=== PATIENT | male | born 1990 | race Caucasian/White ===

== ENCOUNTER 2018-10-13 14:11 | Emergency (ER) | payer BC ==
--- NOTE | 2018-10-13 16:29 | RAD REPORT ---
EXAM DESCRIPTION: Rudy Single View10/13/2018 3:28 pm CLINICAL HISTORY: Chest pain COMPARISON: none FINDINGS: The lungs appear clear of acute infiltrate. The heart is normal size IMPRESSION: No acute abnormalities displayed
--- NOTE | 2018-10-13 18:43 | RAD REPORT ---
EXAM DESCRIPTION: CT - Thorax Wo Con - 10/13/2018 5:45 pm CLINICAL HISTORY: Chest pain status post fall COMPARISON: None TECHNIQUE: Computed axial tomography of the chest was obtained. Contrast was not requested. All CT scans are performed using dose optimization technique as appropriate and may include automated exposure control or mA/KV adjustment according to patient size. FINDINGS: The evaluation of mediastinum, bc and vessels is limited secondary to lack of IV contras t administration. A mildly displaced fracture involves the left tenth posterior rib. No pneumothorax A mediastinal hematoma is not seen. A pulmonary contusion is not noted A pleural effusion is not present. A pericardial effusion is not seen IMPRESSION: Mildly displaced fracture left tenth posterior rib
--- NOTE | 2018-10-13 19:24 | ER ---
Nurse's Notes [facility] Name: Matt Suazo Age: 28 yrs Sex: Male : 1990 Arrival Date: 10/13/2018 Time: 14:12 Bed 12 Private MD: Diagnosis: Fracture of one rib, left side Presentation: 10/13 14:22 Presenting complaint: Patient states: I fell two weeks ago and my ribs hurt. Transition la1 of care: patient was not received from another setting of care. Onset of symptoms was October 13, 2018. Risk Assessment: Do you want to hurt yourself or someone else? Patient reports no desire to harm self or others. Initial Sepsis Screen: Does the patient meet any 2 criteria? No. Patient's initial sepsis screen is negative. Does the patient have a suspected source of infection? No. Patient's initial sepsis screen is negative. Care prior to arrival: None. 14:22 Method Of Arrival: Ambulatory la1 14:22 Acuity: ROSA 4 la1 Historical: - Allergies: 14:23 No Known Allergies; la1 - PMHx: 14:23 None; la1 - Immunization history:: Adult Immunizations up to date. - Social history:: Smoking status: Patient/guardian denies using tobacco. - Ebola Screening: : No symptoms or risks identified at this time. Screenin:24 Abuse screen: Denies threats or abuse. Nutritional screening: No deficits noted. la1 Tuberculosis screening: No symptoms or risk factors identified. Fall Risk None identified. Assessment: 14:23 General: Appears in no apparent distress. Behavior is calm, cooperative. Pain: la1 Complains of pain in left subscapular area, right subscapular area and mid back area. Neuro: Level of Consciousness is awake, alert, obeys commands, Oriented to person, place, time, situation. Cardiovascular: Capillary refill < 3 seconds Patient's skin is warm and dry. Respiratory: Airway is patent Respiratory effort is even, unlabored, Respiratory pattern is regular, symmetrical. GI: No signs and/or symptoms were reported involving the gastrointestinal system. : No signs and/or symptoms were reported regarding the genitourinary system. 15:30 Reassessment: Patient appears in no apparent distress at this time. No changes from aj1 previously documented assessment. Patient and/or family updated on plan of care and expected duration. Pain level reassessed. Patient is alert, oriented x 3, equal unlabored respirations, skin warm/dry/pink. 17:30 Reassessment: Patient appears in no apparent distress at this time. No changes from aj1 previously documented assessment. Patient and/or family updated on plan of care and expected duration. Pain level reassessed. Patient is alert, oriented x 3, equal unlabored respirations, skin warm/dry/pink. 19:30 Reassessment: Patient appears in no apparent distress at this time. No changes from aj1 previously documented assessment. Patient and/or family updated on plan of care and expected duration. Pain level reassessed. Patient is alert, oriented x 3, equal unlabored respirations, skin warm/dry/pink. Vital Signs: 14:23 BP 123 / 72; Pulse 85; Resp 16; Temp 97.5; Pulse Ox 98% on R/A; Weight 68.04 kg; Height la1 5 ft. 7 in. (170.18 cm); 19:47 BP 113 / 77; Pulse 72; Resp 16; Pulse Ox 100% on R/A; aj1 14:23 Body Mass Index 23.49 (68.04 kg, 170.18 cm) la1 ED Course: 14:12 Patient arrived in ED. as 14:23 Triage completed. la1 14:23 Arm band placed on left wrist. la1 14:24 Alonzo Zavaleta PA is PHCP. [facility] 14:24 Chavo Benites MD is Attending Physician. [facility] 14:24 Patient has correct armband on for positive identification. la1 14:33 Kendal Dawkins, JEROME is Primary Nurse. aj1 15:29 Chest Single View XRAY In Process Unspecified. EDMS 17:47 CT Chest Wo Con In Process Unspecified. EDMS 19:47 No provider procedures requiring assistance completed. Patient did not have IV access aj1 during this emergency room visit. Administered Medications: No medications were administered Outcome: 19:23 Discharge ordered by . jm 19:47 Discharged to home ambulatory. aj1 19:47 Condition: good 19:47 Discharge instructions given to patient, Instructed on discharge instructions, follow up and referral plans. medication usage, Demonstrated understanding of instructions, follow-up care, medications, Prescriptions given X 1. 19:49 Patient left the ED. aj1 Signatures: Dispatcher [employer] Kendal Mckee RN RN aj1 Alonzo Zavaleta PA PA jmm Martinez, Amelia as Attema, Lee RN RN la1
--- NOTE | 2018-10-13 19:24 | EDPHYS ---
Physician Documentation [facility] Name: Matt Suazo Age: 28 yrs Sex: Male : 1990 Arrival Date: 10/13/2018 Time: 14:12 Bed 12 Private MD: ED Physician Chavo Benites HPI: 10/13 14:45 This 28 yrs old Male presents to ER via Ambulatory with complaints of Rib jmm Injury. 14:45 The patient or guardian reports chest pain that is located primarily in the right jmm lateral posterior chest and left lateral posterior chest. Onset: The symptoms/episode began/occurred acutely, 2 week(s) ago. The pain does not radiate. Associated signs and symptoms: Pertinent negatives: abdominal pain, shortness of breath. This is a 28 year old male with no chronic medical conditions that presents to the ED with complaints of bilateral posterior rib pain. Patient states he injured himself [facility] [place] [facility] [place] Patient states he landing on the floor ontop of another persons arm. Denies fever. Denies shortness of breath. . Historical: - Allergies: 14:23 No Known Allergies; la1 - PMHx: 14:23 None; la1 - Immunization history:: Adult Immunizations up to date. - Social history:: Smoking status: Patient/guardian denies using tobacco. - Ebola Screening: : No symptoms or risks identified at this time. ROS: 14:45 Constitutional: Negative for fever, chills, and weight loss, Cardiovascular: Negative jmm for chest pain, palpitations, and edema. 14:45 Respiratory: Negative for shortness of breath, cough, wheezing, and pleuritic chest pain. 14:45 Back: Positive for rib pain. 14:45 All other systems are negative. Exam: 14:45 Constitutional: This is a well developed, well nourished patient who is awake, alert, jmm and in no acute distress. Head/Face: atraumatic. Eyes: EOMI, no conjunctival erythema appreciated ENT: Moist Mucus Membranes Neck: Trachea midline, Supple Chest/axilla: Normal chest wall appearance and motion. Cardiovascular: Regular rate and rhythm. No edema appreciated Respiratory: Normal respirations, no respiratory distress appreciated Abdomen/GI: Non distended, soft 14:45 Respiratory: the patient does not display signs of respiratory distress, Respirations: normal, Breath sounds: are clear throughout. 14:45 Back: posterior rib step off noted. Vital Signs: 14:23 BP 123 / 72; Pulse 85; Resp 16; Temp 97.5; Pulse Ox 98% on R/A; Weight 68.04 kg; Height la1 5 ft. 7 in. (170.18 cm); 19:47 BP 113 / 77; Pulse 72; Resp 16; Pulse Ox 100% on R/A; aj1 14:23 Body Mass Index 23.49 (68.04 kg, 170.18 cm) la1 MDM: 14:45 Patient medically screened. [facility] 19:22 Data reviewed: vital signs, nurses notes. Counseling: I had a detailed discussion with [facility] the patient and/or guardian regarding: the historical points, exam findings, and any diagnostic results supporting the discharge/admit diagnosis, radiology results, the need for outpatient follow up, to return to the emergency department if symptoms worsen or persist or if there are any questions or concerns that arise at home. 19:22 ED course: Patient is alert and non toxic in appearance in the ED. I discussed with the [facility] patient the need to follow up with pcp and given return precautions. Patient understood and agrees with the plan of care. . 10/13 14:54 Order name: Chest Single View XRAY; Complete Time: 16:30 [facility] 10/13 16:19 Order name: INCENTIVE SPIROMETRY [facility] 10/13 17:21 Order name: CT Chest Wo Con; Complete Time: 19:06 [facility] Administered Medications: No medications were administered Disposition: 10/14 11:16 Co-signature as Attending Physician, Chavo Benites MD I agree with the assessment and ramon plan of care. Disposition: 10/13/18 19:23 Discharged to Home. Impression: Fracture of one rib, left side. - Condition is Stable. - Discharge Instructions: Rib Fracture, Incentive Spirometer. - Prescriptions for Ultracet 37.5- 325 mg Oral Tablet - take 1 tablet by ORAL route every 6 hours - for up to 5 days; do not exceed 8 tablets per day.; 12 tablet. - Medication Reconciliation Form, Thank You Letter, Antibiotic Education, Prescription Opioid Use form. - Follow up: Private Physician; When: 2 - 3 days; Reason: Recheck today's complaints, Continuance of care, Re-evaluation by your physician. Signatures: Dispatcher [employer] Kendal Mckee, JEROME RN aj1 Chavo Benites MD MD cha Mickail, Joel, PA PA jmm Attema, Lee RN RN la1 Corrections: (The following items were deleted from the chart) 10/13 19:49 19:23 10/13/2018 19:23 Discharged to Home. Impression: Fracture of one rib, left side. aj1 Condition is Stable. Forms are Medication Reconciliation Form, Thank You Letter, Antibiotic Education, Prescription Opioid Use. Follow up: Private Physician; When: 2 - 3 days; Reason: Recheck today's complaints, Continuance of care, Re-evaluation by your physician. adriana
== END 2018-10-13 19:49 | disposition home or self-care (01) ==
LOC: ER 14:11
DX: S22.32XA Fracture of one rib, left side, initial encounter for closed fracture (principal); W19.XXXA Unspecified fall, initial encounter; Y93.75 Activity, martial arts; Y92.89 Other specified places as the place of occurrence of the external cause
CPT/HCPCS: 71045; 71250; 99283

== ENCOUNTER 2022-05-02 03:02 | Inpatient (IN) | payer BC ==
[2022-05-02 03:55] LABS: Absolute Lymphocytes (CBC) 0.7 K/uL (0.7-4.9); Hematocrit 39.2 % (39.6-49.0); MCV 85.7 fL (80-100); MPV 8.5 fL (7.6-11.3); RBC Red Blood Cell Count 4.58 M/uL (4.33-5.43)
[2022-05-02 04:24] LABS: Bilirubin Total 0.6 mg/dL (0.2-1.0); Potassium 3.5 mmol/L (3.5-5.1); Protein, Total 7.2 g/dL (6.4-8.2)
[2022-05-02 05:12] LABS: Blood Morphology Comment NOT SEEN (NOT SEEN); Platelet Estimate ADEQ
[2022-05-02] MEDS ORDERED: NA CHLORIDE 0.9% 100 ML ONE (06:02)
[2022-05-02] MEDS ORDERED: PIPERACIL/TAZO 3.375 GM VIAL IV ONE (06:02)
--- NOTE | 2022-05-02 06:02 | ER ---
Nurse's Notes [facility] Name: Matt Suazo Age: 31 yrs Sex: Male : 1990 Arrival Date: 05/02/2022 Time: 03:08 Bed 6 Private MD: Diagnosis: Acute cholecystitis;Upper abdominal pain, unspecified Presentation: 05/02 03:22 Chief complaint: Patient states: C/o abdominal pain, constipation, N/V since 1900. ll3 Coronavirus screen: Vaccine status: Patient reports being unvaccinated. nausea, vomiting. Ebola Screen: No symptoms or risks identified at this time. 03:22 Method Of Arrival: Ambulatory ll3 03:25 Initial Sepsis Screen: Does the patient meet any 2 criteria? No. Patient's initial ll3 sepsis screen is negative. Does the patient have a suspected source of infection? No. Patient's initial sepsis screen is negative. Risk Assessment: Do you want to hurt yourself or someone else? Patient reports no desire to harm self or others. Onset of symptoms was May 01, 2022 at 19:00. 03:25 Acuity: ROSA 3 ll3 Triage Assessment: 04:42 General: Appears in no apparent distress. Behavior is appropriate for age. Neuro: Level ke1 of Consciousness is awake, alert, Oriented to person, place, time, situation. Historical: - Allergies: 03:25 No Known Allergies; ll3 - Home Meds: 03:25 None [Active]; ll3 - PMHx: 03:25 None; ll3 - PSHx: 03:25 None; ll3 - Immunization history:: Client reports having NOT received the Covid vaccine. - Social history:: Smoking status: Patient denies any tobacco usage or history of. Screenin:41 [facility] ED Fall Risk Assessment (Adult) History of falling in the last 3 months, ke1 including since admission No falls in past 3 months (0 pts) Confusion or Disorientation No (0 pts) Intoxicated or Sedated No (0 pts) Impaired Gait No (0 pts) Mobility Assist Device Used No (0 pt) Altered Elimination No (0 pt) Score/Fall Risk Level 0 - 2 = Low Risk. Abuse screen: Denies threats or abuse. Nutritional screening: No deficits noted. Tuberculosis screening: No symptoms or risk factors identified. Assessment: 03:45 General: Appears in no apparent distress. uncomfortable, Behavior is calm, cooperative, jb4 appropriate for age. Pain: Complains of pain in abdomen Pain does not radiate. Pain currently is 7 out of 10 on a pain scale. Neuro: Level of Consciousness is awake, alert, obeys commands, Oriented to person, place, time, situation. Cardiovascular: Patient's skin is warm and dry. Respiratory: Airway is patent Respiratory effort is even, unlabored, Respiratory pattern is regular, symmetrical. GI: Abdomen is flat, non-distended, Reports nausea, vomiting. : No signs and/or symptoms were reported regarding the genitourinary system. EENT: No signs and/or symptoms were reported regarding the EENT system. Derm: Skin is intact, Skin is pink, warm \T\ dry. 04:57 Reassessment: Patient appears in no apparent distress at this time. Patient and/or jb4 family updated on plan of care and expected duration. Pain level reassessed. Patient is alert, oriented x 3, equal unlabored respirations, skin warm/dry/pink. 06:10 Reassessment: Patient appears in no apparent distress at this time. Patient and/or jb4 family updated on plan of care and expected duration. Pain level reassessed. Patient is alert, oriented x 3, equal unlabored respirations, skin warm/dry/pink. 07:12 Reassessment: Dr. Kelly at bedside discussing POC. jl7 07:39 Reassessment: Consent signed and placed on chart. Pt verbalizes understanding of ss procedure and that he is to remain NPO until otherwise discussed with Dr. Kelly after procedure. Pain: Denies pain. Respiratory: Airway is patent Respiratory effort is even, unlabored, Respiratory pattern is regular, symmetrical. Derm: Skin is intact, is healthy with good turgor, Skin is pink, warm \T\ dry. normal. 08:15 Reassessment: report given to JEROME Ronquillo. Vital Signs: 03:22 BP 125 / 67; Pulse 63; Resp 18; Temp 98.8(O); Pulse Ox 100% on R/A; Weight 68.04 kg ll3 (R); Height 5 ft. 7 in. (170.18 cm); Pain 7/10; 05:22 BP 125 / 74; Pulse 61; Resp 16; Pulse Ox 100% on R/A; jb4 07:41 BP 122 / 70; Pulse 73; Resp 16; Pulse Ox 99% on R/A; Pain 0/10; ss 03:22 Body Mass Index 23.49 (68.04 kg, 170.18 cm) ll3 ED Course: 03:08 Patient arrived in ED. ja2 03:11 John Jmaes DO is Attending Physician. ms3 03:25 Triage completed. ll3 03:25 Arm band placed on. ll3 03:36 Lai Chou, JEROME is Primary Nurse. jb4 04:41 Bed in low position. Call light in reach. ke1 06:01 David Kelly MD is Hospitalizing Provider. ms3 07:00 Inserted saline lock: 20 gauge in right antecubital area, using aseptic technique. jl7 ,using aseptic technique. Pt with IV placed by previous shift. 08:19 No provider procedures requiring assistance completed. Patient admitted, IV remains in jl7 place. intact. Administered Medications: 06:08 Drug: Zosyn (piperacillin-tazobactam) 3.375 grams Route: IVPB; Infused Over: 60 mins; ke1 Site: right antecubital; 07:08 Follow up: Response: No adverse reaction; IV Status: Completed infusion jl7 06:13 Drug: NS 0.9% 1000 ml Route: IV; Rate: 125 ml/hr; Site: right antecubital; jb4 07:25 Follow up: IV Status: Infusion continued upon admission jl7 06:56 Drug: Dilaudid (HYDROmorphone) 1 mg Route: IVP; Site: right antecubital; 4 07:25 Follow up: Response: No adverse reaction; Pain is decreased jl7 Medication: 07:20 VIS not applicable for this client. jl7 Outcome: 06:01 Decision to Hospitalize by Provider. ms3 08:19 Admitted to Med/surg accompanied by tech, family with patient, via wheelchair, room jl7 402, with chart, Report called to JEROME Ronquillo 08:19 Condition: stable 08:19 Discharge instructions given to patient, Instructed on the need for admit, Demonstrated understanding of instructions. 08:20 Patient left the ED. 7 Signatures: Jailyn Quinones RN RN Lai Chou, JEROME RN [facility] Reid Craig RN RN 7 John James, DO DO ms3 Saadia Beltrán2 Blanca Kendrick RN RN ll3 Thalia Quiroga RN RN ke1 Corrections: (The following items were deleted from the chart) 03:27 03:22 BP 125 / 67; Pulse 63bpm; Resp 18bpm; Pulse Ox 100% RA; ll3 ll3 06:03 03:22 BP 125 / 67; Pulse 63bpm; Resp 18bpm; Pulse Ox 100% RA; 68.04 kg Reported; Height ll3 5 ft. 7 in.; BMI: 23.4; Pain 7/10; ll3
--- NOTE | 2022-05-02 06:02 | EDPHYS ---
Physician Documentation [facility] Name: Matt Suazo Age: 31 yrs Sex: Male : 1990 Arrival Date: 05/02/2022 Time: 03:08 Bed 6 Private MD: ED Physician John James HPI: 05/02 04:13 This 31 yrs old Male presents to ER via Ambulatory with complaints of Weakness, Fever, ms3 Vomiting, Abdominal Pain. 04:13 31-year-old male with no past medical history presents for abdominal pain that began at ms3 6:45 PM. Patient states he felt constipated so he took suppositories and then felt like he had gas and took Imodium. Patient states his pain is a 7/10 located in the right upper quadrant and described as aching. Patient endorses nausea, vomiting, chills. Patient denies fever or sick contacts.. Historical: - Allergies: 03:25 No Known Allergies; ll3 - Home Meds: 03:25 None [Active]; ll3 - PMHx: 03:25 None; ll3 - PSHx: 03:25 None; ll3 - Immunization history:: Client reports having NOT received the Covid vaccine. - Social history:: Smoking status: Patient denies any tobacco usage or history of. ROS: 04:13 Constitutional: Negative for fever, and chills. Neck: Negative for injury, pain, and ms3 swelling, Cardiovascular: Negative for chest pain, and palpitations. Respiratory: Negative for shortness of breath, cough, wheezing, and pleuritic chest pain. 04:13 Back: Negative for injury and pain, Skin: Negative for injury, rash, and discoloration. 04:13 Abdomen/GI: Positive for abdominal pain, nausea and vomiting, Negative for diarrhea. 04:13 All other systems are negative. Exam: 04:13 Constitutional: This is a well developed, well nourished patient who is awake, alert, ms3 and in no acute distress. Head/Face: Normocephalic, atraumatic. Chest/axilla: Normal chest wall appearance and motion. Nontender with no deformity. Cardiovascular: Regular rate and rhythm with a normal S1 and S2. No gallops, murmurs, or rubs. Normal PMI, no JVD. No pulse deficits. Respiratory: Lungs have equal breath sounds bilaterally, clear to auscultation and percussion. No rales, rhonchi or wheezes noted. No increased work of breathing, no retractions or nasal flaring. 04:13 Skin: Warm, dry with normal turgor. Normal color with no rashes, no lesions, and no evidence of cellulitis. MS/ Extremity: Pulses equal, no cyanosis. Neurovascular intact. Full, normal range of motion. 04:13 Abdomen/GI: Inspection: abdomen appears normal, Bowel sounds: normal, Palpation: abdomen is soft and non-tender, in all quadrants. Vital Signs: 03:22 BP 125 / 67; Pulse 63; Resp 18; Temp 98.8(O); Pulse Ox 100% on R/A; Weight 68.04 kg ll3 (R); Height 5 ft. 7 in. (170.18 cm); Pain 7/10; 05:22 BP 125 / 74; Pulse 61; Resp 16; Pulse Ox 100% on R/A; jb4 07:41 BP 122 / 70; Pulse 73; Resp 16; Pulse Ox 99% on R/A; Pain 0/10; ss 03:22 Body Mass Index 23.49 (68.04 kg, 170.18 cm) ll3 MDM: 03:23 Patient medically screened. ms3 04:13 Differential diagnosis: cholecystitis, Cholelithiasis, gastritis, non-specific abd ms3 pain, pancreatitis. 07:30 Data reviewed: vital signs, nurses notes, lab test result(s), radiologic studies, and ms3 as a result, I will admit patient. Consideration of Admission/Observation Patient was admitted/placed on observation. Management of patient was discussed with the following: General Surgery: Dr Kelly. I considered the following discharge prescriptions or medication management in the emergency department Medications were administered in the Emergency Department. See MAR. 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 Counseling: I had a detailed discussion with the patient and/or guardian regarding: the historical points, exam findings, and any diagnostic results supporting the discharge/admit diagnosis, lab results, radiology results, the need for further work-up and treatment in the hospital. 05/02 03:23 Order name: CBC with Diff ms3 05/02 03:23 Order name: CMP ms3 05/02 03:23 Order name: Lipase ms3 05/02 03:58 Order name: CBC with Automated Diff; Complete Time: 05:29 EDMS 05/02 04:24 Order name: Comprehensive Metabolic Panel; Complete Time: 05:10 EDMS 05/02 04:24 Order name: Lipase; Complete Time: 05:10 EDMS 05/02 03:23 Order name: CT Abd/Pelvis - IV Contrast Only ms3 05/02 05:12 Order name: Manual Differential; Complete Time: 05:29 EDMS 05/02 05:30 Order name: US Abdomen Limited ms3 05/02 06:02 Order name: SARS RAPID ms3 05/02 06:41 Order name: SARS-COV-2 Antigen Rapid; Complete Time: 06:43 EDMS 05/02 03:23 Order name: IV Saline Lock; Complete Time: 03:44 ms3 05/02 03:23 Order name: Labs collected and sent; Complete Time: 03:44 ms3 Administered Medications: 06:08 Drug: Zosyn (piperacillin-tazobactam) 3.375 grams Route: IVPB; Infused Over: 60 mins; ke1 Site: right antecubital; 07:08 Follow up: Response: No adverse reaction; IV Status: Completed infusion jl7 06:13 Drug: NS 0.9% 1000 ml Route: IV; Rate: 125 ml/hr; Site: right antecubital; jb4 07:25 Follow up: IV Status: Infusion continued upon admission jl7 06:56 Drug: Dilaudid (HYDROmorphone) 1 mg Route: IVP; Site: right antecubital; jb4 07:25 Follow up: Response: No adverse reaction; Pain is decreased jl7 Disposition Summary: 05/02/22 06:01 Hospitalization Ordered Hospitalization Status: Inpatient Admission ms3 Provider: David Kelly ms3 Location: Telemetry/[facility]Sur (Inpatient) ms3 Condition: Stable ms3 Problem: new ms3 Symptoms: are unchanged ms3 Bed/Room Type: Standard ms3 Room Assignment: 402(05/02/22 06:50) mw Diagnosis - Acute cholecystitis ms3 - Upper abdominal pain, unspecified ms3 Forms: - Medication Reconciliation Form ms3 - SBAR form ms3 Signatures: Dispatcher [employer] EDEstela Vazquez RN RN mw Lai Chou RN RN jb4 John James, DO [place] ms3 Blanca Kendrick RN RN ll3 Thalia Quiroga RN RN ke1 Reid Craig RN jl7 Corrections: (The following items were deleted from the chart) 06:50 06:01 ms3
[2022-05-02] MEDS ORDERED: MORPHINE 4 MG/ML SYR IV PRN (06:05)
[2022-05-02] MEDS ORDERED: ONDANSETRON 4 MG/2 ML VIAL IV PRN (06:05)
[2022-05-02] MEDS ORDERED: NA CHLORIDE 0.9% 1,000 ML ONE (06:14)
[2022-05-02 06:41] LABS: SARS-CoV-2 Antigen Rapid Res Negative (Negative)
[2022-05-02] MEDS ORDERED: HYDROMORPHONE HCL 1 MG/ML INJ ONE (06:53)
[2022-05-02] MEDS: D5 0.45 NS 1,000 ML IV SCH ×3 (08:42→23:00)
[2022-05-02 08:45] VITALS: BMI 23.5
--- NOTE | 2022-05-02 08:47 | RAD REPORT ---
EXAM DESCRIPTION: US - Abdomen Exam Limited - 05/02/2022 6:03 am CLINICAL HISTORY: ABD PAIN COMPARISON: No comparisons FINDINGS: The gallbladder demonstrates several gallstones. No pericholecystic fluid or gallbladder w all thickening. The common bile duct is normal measuring 3 mm. The liver demonstrates no findings of intrahepatic biliary dilatation. IMPRESSION: Cholelithiasis.
[2022-05-02] MEDS ORDERED: Ringers Lactate 1,000 ML IV ONE ×2 (13:13→15:34)
[2022-05-02] MEDS ORDERED: PIPER TAZO 3.375 GM in NA CHLORIDE 0.9% 100 ML IV ONE (13:18)
[2022-05-02] MEDS ORDERED: PIPER TAZO 3.375 GM in NA CHLORIDE 0.9% 50 ML IV ONE (13:30)
[2022-05-02] MEDS ORDERED: FENTANYL CITR 100 MCG/2 ML ONE (14:15)
[2022-05-02] MEDS ORDERED: ROCURONIUM 50 MG/5 ML VIAL IV ONE (14:16)
[2022-05-02] MEDS ORDERED: MIDAZOLAM HCL 2 MG/2 ML INJ ONE (14:16)
[2022-05-02] MEDS ORDERED: LIDOCAINE 2% MPF 5 ML VIAL ONE (14:16)
[2022-05-02] MEDS ORDERED: ONDANSETRON 4 MG/2 ML VIAL ONE (14:16)
[2022-05-02] MEDS ORDERED: propofoL 200 MG/20 ML VIAL IV ONE (14:16)
[2022-05-02] MEDS ORDERED: dexAMETHasone 10 MG/ML VIAL ONE (14:53)
[2022-05-02] MEDS ORDERED: KETOROLAC 30 MG/ML INJ ONE (14:54)
[2022-05-02] MEDS ORDERED: GLYCOPYRROLATE 0.2 MG/ML SYR ONE (15:53)
[2022-05-02] MEDS ORDERED: NEOSTIGMINE 1 MG/ML -5 ML ONE (15:54)
--- NOTE | 2022-05-02 16:00 | P.OP ---
Preoperative diagnosis: Cholecystitis and Cholecystitis Postoperative diagnosis: Cholecystitis and Cholecystitis Primary procedure: Laparoscopic Cholecystectomy with ICG Cholangiography Anesthesia: GETA + Local Estimated blood loss: <10cc Specimen: Gallbladder Findings: Short cystic duct, inflammation, cholecystitis, cholelithiasis Complications: None Transferred to: Recovery Room Condition: Good
[2022-05-02] MEDS ORDERED: HYDROCODONE/APAP 7.5/325 MG TAB PO PRN (16:11)
[2022-05-02] MEDS: D5.45NS W/KCL 20MEQ 1,000 ML IV SCH (17:09)
--- NOTE | 2022-05-02 19:51 | OP ---
Date of Procedure: 05/02/2022 Surgeon: David Kelly MD, Preoperative Diagnosis: Cholecystitis with cholelithiasis. Postoperative Diagnosis: Cholecystitis with cholelithiasis. Procedure Performed: Laparoscopic cholecystectomy with indocyanine green cholangiography. Anesthesia: General endotracheal plus local with 0.5% Marcaine. Estimated Blood Loss: Less than 10 cc. Specimen: Gallbladder. Findings: Short cystic duct inflammation, cholecystitis, and cholelithiasis. Complications: None. The patient was transferred to recovery room in good condition. Procedure In Detail: After informed consent was obtained, the patient was brought to the operating r oom, and prepped and draped in the usual sterile fashion. After adequate anesthesia was achieved, I anesthetized an area at the supraumbilical position down to subcutaneous tissues. I then made an inc ision with 11 blade. A 5 mm 0 degree optical trocar was introduced in the abdomen without evidence o f any complication. Insufflation was obtained to 15 mmHg at this time. There was no injury to vital structure upon entry into the abdomen. Three additional trocars were placed, 1 in the epigastrium, 1 in the right upper quadrant, and 1 in the right mid abdomen. All of these were 5 mm trocars placed under direct visualization without evidence of any complication. The umbilical trocar was then upsi zed to a 12 mm under direct visualization without evidence of any complication. The patient was posi tioned head up right-side up position. Ratcheted grasper was used to grasp the patient's gallbladder towards the patient's right shoulder and I grasped the gallbladder, found it to be quite inflamed an d difficult to grasp at this point. As such a decompression needle was brought in and decompressed t he gallbladder by placing the catheter into the fundus of the gallbladder, suctioning out dark green bilious material. Additionally, there was dark green bilious material in the perihepatic space prior to any manipulation of the gallbladder, which was photographed as well. At this point, the gallblad sid was placed towards the patient's right shoulder. I dissected down to expose the Luz pouch o f the gallbladder. The cystic duct was found to be quite short. I used ICG cholangiography to confi rm the cystic duct common duct confluence, which was quite short and close to the medial wall of the gallbladder. I dissected circumferentially around using meticulous dissection of combination of elec trocautery and blunt dissection with a [place] retractor. Ultimately I skeletonized 2 structures id entified as both cystic duct and cystic artery; however, there appeared to be a posterior branch comi ng off the cystic artery. As such, I opted to doubly ligate the proximal side and singly on the dist al side of both cystic duct and cystic artery. These structures were then ligated using Endo Ramon without evidence of any complication. There was no leakage of bile or blood throughout the procedure from any of the clip locations. I then removed the gallbladder from the hepatic fossa without evide nce of any complication. I placed it in an Endo Catch bag, removed it through the umbilical trocar, and sent it off for pathologic examination. At this point, the abdomen was re-insufflated. I copiou sly irrigated the perihepatic space and suctioned it out until completely dry. Clips were found to b e in good anatomic position at the end of the procedure without any spillage of blood or bile. I the n returned the patient to the neutral position and closed the 12 mm trocar site using a Rodolfo-Adair on suture passer with 0 Vicryl in interrupted fashion and good approximation of tissues. I then desu fflated the abdomen under direct visualization without evidence of complication. Remaining trocars w ere all removed. All skin edges were then copiously irrigated and closed with 4-0 Monocryl in runnin g fashion. Dermabond was placed over top. The patient tolerated the procedure without evidence of a ny complication and transferred to PACU in good condition. All counts were correct at the end of the case. RUTH/ANDREA Voice ID: [id number] Report ID: [id number]
--- NOTE | 2022-05-02 20:06 | HP ---
Date of Admission: 05/02/2022 Brief History Of Present Illness: The patient is a 31-year-old male who complains of fever, weakness , vomiting, and abdominal pain in epigastric and right upper quadrant abdominal pain. It began short ly after eating ribs yesterday. He tried taking Imodium and other medication, which did not improve his symptoms. As such, he came to the emergency room with the above-stated complaints. He has never had similar episodes before in the past. No sick contacts. No recent travel. No new food exposure s. Past Medical History: Negative. Past Surgical History: Denies. Allergies: NO KNOWN DRUG ALLERGIES. Home Medications: None. Social History: Denies smoking, alcohol, or recreational drug use. Review of Systems: Ten-point review of systems other than HPI, denies. Physical Examination: General: At the time of my examination, he is awake, alert, oriented. Psychiatric: Appropriate, conversive. HEENT: Normocephalic. Sclerae anicteric. Mucous membranes moist. Oropharynx clear. Neck: Supple without JVD. Chest: Normal expansion and excursion. Cardiovascular: Regular rate and rhythm. Pulmonary: Clear to auscultation bilaterally. Abdomen: Soft with positive right upper quadrant tenderness to palpation. Positive epigastric tende rness to palpation. Weakly positive Rao sign. No rebound. No guarding. No focal peritonitis. Extremities: No clubbing, cyanosis, or edema. Skin: Warm and dry. Laboratory Data: White blood count of 17, hemoglobin is 13.5, hematocrit 39.2, platelet count is 158 , and neutrophils 92%. His sodium is 135, potassium 3.5, chloride 101, carbon dioxide 27, BUN 10, cr eatinine 0.7, glucose 138, total bilirubin 0.6, AST 23, ALT 28, alkaline phosphatase 71, lipase 153. He had imaging performed, which included abdomen and pelvis CT, which was officially read as choleli thiasis with gall gallstones in the gallbladder neck with suggestion of some mild pericholecystic inf lammatory changes. Correlate with right upper quadrant ultrasound, may be clinically indicated. Ult rasound was read, which showed cholelithiasis as well. Common bile duct is normal measuring 3 mm. Assessment And Plan: This is a 31-year-old male who comes in with signs and symptoms of biliary coli c, possible early cholecystitis. 1.IV fluid hydration. 2.Antibiotic coverage. 3.I explained the risks, benefits, and alternatives of laparoscopic possible open cholecystectomy in cluding, but not limited to bleeding, infection, damage to the surrounding tissue, need for further o perative procedures. The patient agreed to proceed as indicated. RUTH/ANDREA Voice ID: [id number]
[2022-05-03 00:26] VITALS: O2SAT 97
[2022-05-03] MEDS: D5 0.45 NS 1,000 ML IV SCH (02:43)
[2022-05-03] MEDS: D5.45NS W/KCL 20MEQ 1,000 ML IV SCH (02:49)
[2022-05-03 06:21] LABS: Absolute Lymphocytes (CBC) 1.1 K/uL (0.7-4.9); Hematocrit 37.5 % (39.6-49.0); Lymphocytes % 8.8 % (15.3-44.8); MCV 86.2 fL (80-100); MPV 8.8 fL (7.6-11.3); RBC Red Blood Cell Count 4.35 M/uL (4.33-5.43)
[2022-05-03 06:35] LABS: Bilirubin Direct 0.1 mg/dL (0-0.2); Bilirubin Total 0.4 mg/dL (0.2-1.0); Potassium 4.2 mmol/L (3.5-5.1); Protein, Total 6.1 g/dL (6.4-8.2)
[2022-05-03 09:24] VITALS: BP 105/42; TEMP 99.3
--- NOTE | 2022-05-03 11:11 | RAD REPORT ---
EXAM DESCRIPTION: CT Abdomen and Pelvis With Intravenous Contrast CLINICAL HISTORY: The patient is 31 years old and is Male; ABD PAIN TECHNIQUE: Axial computed tomography images of the abdomen and pelvis with intravenous contrast. S agittal and coronal reformatted images were created and reviewed. This CT exam was performed using one or more of the following dose reduction techniques: automated exposure control, adjustment of t he mA and/or kV according to patient size, and/or use of iterative reconstruction technique. COMPARISON: No relevant prior studies available. FINDINGS: Lung bases: Unremarkable. No mass. No consolidation. ABDOMEN: Liver: Nonspecific 1.6 cm hypoattenuating focus in the left liver. Gallbladder and bile ducts: Cholelithiasis with gallstones in the gallbladder neck. Suggestion o f some mild pericholecystic inflammatory changes. No ductal dilation. Pancreas: Unremarkable. No mass. No ductal dilation. Spleen: Unremarkable. No splenomegaly. Adrenals: Unremarkable. No mass. Kidneys and ureters: Unremarkable. No solid mass. No hydronephrosis. Stomach and bowel: Unremarkable. No obstruction. No mucosal thickening. PELVIS: Appendix: No findings to suggest acute appendicitis. Bladder: Unremarkable. Reproductive: Unremarkable as visualized. ABDOMEN and PELVIS: Intraperitoneal space: Unremarkable. No free air. No significant fluid collection. Bones/joints: No acute fracture. No dislocation. Soft tissues: Unremarkable. Vasculature: Unremarkable. No abdominal aortic aneurysm. Lymph nodes: Unremarkable. No enlarged lymph nodes. IMPRESSION: Cholelithiasis with gallstones in the gallbladder neck. Suggestion of some mild perichol ecystic inflammatory changes. Correlate with right upper quadrant ultrasound if clinically indicate d. Electronically signed by: Melvin Downs MD 05/02/2022 5:24 AM CLOTHING MANAGER Due to temporary technical issues with the PACS/Fluency reporting system, reports are being signed by the in house radiologists without review as a courtesy to insure prompt reporting. The interpreting radiologist is fully responsible for the content of the report.
== END 2022-05-03 09:51 | disposition home or self-care (01) | DRG 419 ==
LOC: ER 03:02 → ERHOLD 06:04 → 4TH 08:16
PROVIDERS: ADMIT Surgery; ATTEND Surgery
PROC: BF50200 Other Imaging of Bile Ducts using Fluorescing Agent, Indocyanine Green Dye, Intraoperative (ICD-10-PCS; 2022-05-02)
PROC: 0FT44ZZ Resection of Gallbladder, Percutaneous Endoscopic Approach (ICD-10-PCS; principal; 2022-05-02 15:00)
DX: K80.00 Calculus of gallbladder with acute cholecystitis without obstruction (principal); Z20.822 Contact with and (suspected) exposure to COVID-19; Z28.310 Unvaccinated for COVID-19
CPT/HCPCS: 36415; 74177; 76705; 80048; 80053; 80076; 83690; 85025; 87811; 88304; 94010; 96365; 96375; 99285; J1100; J1170; J2001; J2250; J2405; J2543; J2704; J2710; J3010; J7030; J7120; J7799; Q9967

== ENCOUNTER 2023-10-24 16:57 | Emergency (ER) | payer BC ==
[2023-10-24] MEDS ORDERED: LIDOCAINE 1% 20 ML MDV ONE (17:48)
--- NOTE | 2023-10-24 18:31 | EDPHYS ---
Physician Documentation [facility] Name: Matt Suazo Age: 33 yrs Sex: Male : 1990 Arrival Date: 10/24/2023 Time: 16:57 Bed Treatment Private MD: MALIA Physician Chavo Benites HPI: 10/23 18:29 This 33 yrs old Male presents to ER via Ambulatory with complaints of Finger Injury. kb 18:29 Patient is a 33-year-old male who presents for lacerations to second and third digits kb on the left hand. States he was using a knife to cut his tile and the knife slipped and cut his fingers. States this happened around 1340 today. Denies any other injuries. Does not want a tetanus shot. Historical: - Allergies: 17:42 No Known Allergies; kb3 - Home Meds: 17:42 None [Active]; kb3 - PMHx: 17:42 None; kb3 - PSHx: 17:42 None; kb3 - Immunization history:: Adult Immunizations up to date. - Infectious Disease History:: Denies. - Social history:: Smoking status: Patient denies any tobacco usage or history of. ROS: 18:25 Constitutional: As per HPI kb Exam: 18:25 Constitutional: This is a well developed, well nourished patient who is awake, alert, kb and in no acute distress. Head/Face: Normocephalic, atraumatic. ENT: Moist Mucous membranes Cardiovascular: Regular rate Respiratory: Respirations even and unlabored. No increased work of breathing. Talking in full sentences MS/ Extremity: Pulses equal, no cyanosis. Neurovascular intact. Full, normal range of motion. Neuro: Awake and alert, GCS 15, oriented to person, place, time, and situation. Moves all extremities. Normal gait. 18:25 Skin: avulsion laceration to second digit, 1.5cm laceration to third digit left hand. Vital Signs: 17:40 Weight 68.04 kg; Height 5 ft. 7 in. ; Pain 7/10; kb3 17:40 Body Mass Index 23.49 (68.04 kg, 170.18 cm) kb3 17:40 Pain Scale: Adult kb3 Laceration: 18:26 Wound Repair of 1.5cm ( 0.6in ) subcutaneous laceration to dorsal aspect of middle kb phalanx of left middle finger. Irregularly shaped.. Skin/tissue flap noted.. Distal neuro/vascular/tendon intact. Anesthesia: Local anesthetic administered with 1 mls of 1% lidocaine. Wound prep: Extensive cleansing with hibiclenz by me, Wound irrigation with saline by me. Skin closed with 3 5-0 Prolene using simple sutures and sterile technique. Patient tolerated well. MDM: 17:10 Patient medically screened. kb 18:26 Differential diagnosis: Laceration, avulsion, abrasion, vascular injury, tendon injury. kb Data reviewed: vital signs, nurses notes. Test considered but Not performed: X-ray: X-ray considered but lacerations are superficial, full range of motion of fingers. Counseling: I had a detailed discussion with the patient and/or guardian regarding the historical points, exam findings, and any diagnostic results supporting the discharge/admit diagnosis, the need for outpatient follow up, a family practitioner, to return to the emergency department if symptoms worsen or persist or if there are any questions or concerns that arise at home. ED course: Patient is a 33-year-old male who was cutting off a zip tie when the knife slipped and cut his second and third digits on his left hand. on exam patient has 1.5 cm laceration to third digit and dime sized skin avulsion on second digit. Three 5-0 Prolene sutures inserted into third digit to close laceration. Avulsion cleaned with Hibiclens, irrigated with normal saline, Surgicel applied and dressed by me. Patient educated to have sutures removed in 7 to 10 days, clean with soap and water to prevent infection and on return precautions. Verbal understanding received. 10/23 17:22 Order name: Dressing - Wound; Complete Time: 18:53 kb 10/23 17:22 Order name: Gloves, Sterile; Complete Time: 18:53 kb 10/23 17:22 Order name: Prolene, Sutures; Complete Time: 18:53 kb 10/23 17:22 Order name: Setup Suture Tray; Complete Time: 18:53 kb Administered Medications: 17:36 CANCELLED (Patient Refused): boostrix tdap0.5 ml IM once; as a single dose kb 18:53 Drug: Lidocaine Infiltration (1 %) 1 vials 20 ml Infiltration once; to bedside Volume: cm10 20 ml; Route: Infiltration; Disposition Summary: 10/24/23 18:31 Discharge Ordered Notes: Location: Home kb Condition: Stable kb Diagnosis - Laceration without foreign body of left middle finger without damage to nail kb - Avulsion laceration to left index finger kb Followup: kb - With: Emergency Department - When: As needed - Reason: Worsening of condition Followup: kb - With: Private Physician - When: 2 - 3 days - Reason: Recheck today's complaints, Continuance of care, Re-evaluation by your physician Discharge Instructions: - Discharge Summary Sheet kb - Laceration Care, Adult, [id number] kb Forms: - Medication Reconciliation Form kb - Antibiotic Education kb - Prescription Opioid Use kb - Patient Portal Instructions kb - Leadership Thank You Letter kb Signatures: Marie Mcmanus, TAJ-Dori VANG-Sumaya Fields, RN RN kb3 Yoly Morfin RN RN cm10 Corrections: (The following items were deleted from the chart) 17:36 17:22 Boostrix Tdap IM 0.5 ml IM once; as a single dose ordered. kb kb
--- NOTE | 2023-10-24 18:31 | ER ---
Nurse's Notes [facility] Name: Matt Suazo Age: 33 yrs Sex: Male : 1990 Arrival Date: 10/24/2023 Time: 16:57 Bed Treatment Private MD: Diagnosis: Laceration without foreign body of left middle finger without damage to nail;Avulsion laceration to left index finger Presentation: 10/23 17:40 Chief complaint: Patient states: Pt reports he cut digit #2 and #3 on his left hand at kb3 approximately 1330. Coronavirus screen: Vaccine status: Patient reports being unvaccinated. Client denies travel out of the [place] in the last 14 days. Ebola Screen: Patient negative for fever greater than or equal to 101.5 degrees Fahrenheit, and additional compatible Ebola Virus Disease symptoms Patient denies exposure to infectious person. Patient denies travel to an Ebola-affected area in the 21 days before illness onset. Initial Sepsis Screen: Does the patient meet any 2 criteria? No. Patient's initial sepsis screen is negative. Does the patient have a suspected source of infection? No. Patient's initial sepsis screen is negative. Risk Assessment: Do you want to hurt yourself or someone else? Patient reports no desire to harm self or others. Onset of symptoms was October 24, 2023 at 13:30. 17:40 Method Of Arrival: Ambulatory 3 17:40 Acuity: ROSA 3 kb3 Triage Assessment: 17:42 General: Appears in no apparent distress. Behavior is calm, cooperative. Pain: kb3 Complains of pain in palmar aspect of middle phalanx of left middle finger and palmar aspect of middle phalanx of left index finger Pain does not radiate. Pain currently is 7 out of 10 on a pain scale. Quality of pain is described as burning, sharp, throbbing. 17:42 Injury Description: Laceration sustained to palmar aspect of middle phalanx of left kb3 ring finger and palmar aspect of middle phalanx of left middle finger. Historical: - Allergies: 17:42 No Known Allergies; kb3 - Home Meds: 17:42 None [Active]; kb3 - PMHx: 17:42 None; kb3 - PSHx: 17:42 None; kb3 - Immunization history:: Adult Immunizations up to date. - Infectious Disease History:: Denies. - Social history:: Smoking status: Patient denies any tobacco usage or history of. Screenin:54 [facility] ED Fall Risk Assessment (Adult) History of falling in the last 3 months, cm10 including since admission No falls in past 3 months (0 pts) Confusion or Disorientation No (0 pts) Intoxicated or Sedated No (0 pts) Impaired Gait No (0 pts) Mobility Assist Device Used No (0 pt) Altered Elimination No (0 pt) Score/Fall Risk Level 0 - 2 = Low Risk Oriented to surroundings, Maintained a safe environment, Hourly rounding (assess needs \T\ fall precautionary measures) done. Abuse screen: Denies threats or abuse. Denies injuries from another. Nutritional screening: No deficits noted. Tuberculosis screening: No symptoms or risk factors identified. Vital Signs: 17:40 Weight 68.04 kg; Height 5 ft. 7 in. ; Pain 7/10; kb3 17:40 Body Mass Index 23.49 (68.04 kg, 170.18 cm) kb3 17:40 Pain Scale: Adult kb3 ED Course: 17:09 Patient arrived in ED. im 17:10 [facility] Mcmanus[facility] eb 17:10 Chavo Benites MD is Attending Physician. kb 17:42 Triage completed. kb3 17:42 Arm band placed on right wrist. kb3 18:54 Patient has correct armband on for positive identification. Provided Education on:. cm10 18:55 No provider procedures requiring assistance completed. Patient did not have IV access cm10 during this emergency room visit. Dressings: 2x2 and kerlix. Administered Medications: 17:36 CANCELLED (Patient Refused): boostrix tdap0.5 ml IM once; as a single dose kb 18:53 Drug: Lidocaine Infiltration (1 %) 1 vials 20 ml Infiltration once; to bedside Volume: cm10 20 ml; Route: Infiltration; Medication: 18:54 VIS not applicable for this client. cm10 Outcome: 18:31 Discharge ordered by . kb 18:55 Discharged to home ambulatory, cm10 18:55 Condition: good 18:55 Discharge instructions given to patient, Instructed on discharge instructions, follow up and referral plans. wound care, Demonstrated understanding of instructions, follow-up care, wound care, 18:56 Patient left the ED. cm10 Signatures: Marie Mcmanus, TOBIAS VANG-Jessie Schmidt Kelly, RN RN kb3 Erma Haque Clarissa, JEROME RN cm10
== END 2023-10-24 18:56 | disposition home or self-care (01) ==
LOC: ER 16:57
PROC: 0HQGXZZ Repair Left Hand Skin, External Approach (ICD-10-PCS; principal; 2023-10-24)
DX: S61.213A Laceration without foreign body of left middle finger without damage to nail, initial encounter (principal); S61.211A Laceration without foreign body of left index finger without damage to nail, initial encounter
CPT/HCPCS: 12001; J2001